=== PATIENT | male | born 2000 | race Native Hawaiian/Other Pacific Islander ===

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

== ENCOUNTER 2020-03-29 07:00 | Outpatient (CLI) | payer OTHER ==
[2020-03-29 19:38] LABS: HB2 TOTAL 15.2 g/dL; HEMOGLOBIN A1C 1.61 g/dL; HEMOGLOBIN A1C % 11.8 % (4.6-6.2)
[2020-03-29 19:59] LABS: ALBUMIN 4.5 g/dL (3.2-5.5); ALBUMIN/GLOBULIN RATIO 1.4 (1.0-2.2); BILIRUBIN,TOTAL 0.7 mg/dL (0.2-1.0); CALCIUM 9.3 mg/dL (8.5-10.3); CREATININE 0.7 mg/dL (0.6-1.2); TOTAL PROTEIN 7.8 g/dL (6.7-8.2)
== END 2020-03-29 23:59 | disposition home or self-care (01) ==
LOC: LAB.WCP 07:00
PROVIDERS: ATTEND Family Medicine
DX: F90.9 Attention-deficit hyperactivity disorder, unspecified type (principal); R79.89 Other specified abnormal findings of blood chemistry; E11.9 Type 2 diabetes mellitus without complications
CPT/HCPCS: 36415; 80053; 83036

== ENCOUNTER 2020-11-11 11:50 | Emergency (ER) | payer OTHER ==
[2020-11-11 12:20] LABS: BASOPHILS % (AUTO) 0.3 %; EOSINOPHILS # (AUTO) 0.3 10^3/uL (0.0-0.7); HCT - HEMATOCRIT 46.2 % (42.0-52.0); HGB - HEMOGLOBIN 15.6 g/dL (14.0-18.0); LYMPHOCYTES # (AUTO) 1.8 10^3/uL (1.5-3.5); LYMPHOCYTES % (AUTO) 22.4 %; MEAN CORPUSCULAR HEMOGLOBIN 27.6 pg (27.0-31.0); MEAN CORPUSCULAR HGB CONC 33.8 g/dL (32.0-36.0); MEAN CORPUSCULAR VOLUME 81.6 fL (80.0-94.0); MEAN PLATELET VOLUME 10.8 fL (7.4-11.4); MONOCYTES # (AUTO) 0.4 10^3/uL (0.0-1.0); MONOCYTES % (AUTO) 4.4 %; NEUTROPHILS # (AUTO) 5.5 10^3/uL (1.5-6.6); NEUTROPHILS % (AUTO) 68.6 %; PLT - PLATELET COUNT 113 10^3/uL (130-450); RED BLOOD COUNT 5.66 10^6/uL (4.70-6.10); RED CELL DISTRIBUTION WIDTH 13.7 % (12.0-15.0); WHITE BLOOD COUNT 7.9 x10^3/uL (4.8-10.8)
[2020-11-11 12:26] LABS: BILIRUBIN,URINE NEGATIVE (NEGATIVE); CLARITY,URINE CLEAR (CLEAR); GLUCOSE, URINE (UA) NEGATIVE (NEGATIVE); KETONES,URINE (UA) NEGATIVE (NEGATIVE); LEUKOCYTE ESTERASE, URINE NEGATIVE (NEGATIVE); NITRITE,URINE NEGATIVE (NEGATIVE); OCCULT BLOOD,URINE NEGATIVE (NEGATIVE); PROTEIN,URINE NEGATIVE (NEGATIVE); UROBILINOGEN,URINE 0.2 (NORMAL) E.U./dL (NORMAL)
[2020-11-11 12:32] LABS: ALBUMIN 4.6 g/dL (3.2-5.5); ALBUMIN/GLOBULIN RATIO 1.3 (1.0-2.2); BILIRUBIN,TOTAL 0.6 mg/dL (0.2-1.0); CALCIUM 9.2 mg/dL (8.5-10.3); CREATININE 0.6 mg/dL (0.6-1.2); TOTAL PROTEIN 8.2 g/dL (6.7-8.2)
--- NOTE | 2020-11-11 12:57 | ED Physician Documentation ---
History of Present Illness - Stated complaint Stated Complaint: LEG PX - Chief complaint Chief Complaint: Ext Problem - History obtained from History obtained from: Patient - Additonal information Additional information: 20-year-old gentleman with history of diabetes presents with bilateral leg pain starting today. He took a long car trip driving about 20 hours over 2 days over the weekend. He did not take insulin while on the trip. He is back on his insulin now. But complains of cramping of both calves and behind the knee and lower posterior thighs starting today. Declines pain medication for it. No history of DVT or PE. No chest pain or trouble breathing. Review of Systems Ten Systems: 10 systems reviewed and negative Constitutional: denies: Fever, Chills Cardiac: denies: Chest pain / pressure, Palpitations Respiratory: denies: Dyspnea, Cough PD PAST MEDICAL HISTORY - Past Medical History Past Medical History: Yes Endocrine/Autoimmune: Type 2 diabetes Psych: ADD/ADHD, Other - Past Surgical History Past Surgical History: Yes HEENT: Tonsil/Adenoidectomy - Present Medications Home Medications: Ambulatory Orders Medication Instructions Recorded Confirmed Guanfacine HCl [Intuniv] 2 mg PO DAILY 03/21/14 10/06/14 Lisdexamfetamine Dimesylate 70 mg PO DAILY 03/21/14 10/06/14 [Vyvanse] Fluoxetine HCl [Prozac] 40 mg PO DAILY 10/06/14 10/06/14 Ibuprofen 600 mg PO TID PRN #14 tablet 05/20/17 oxyCODONE/ACET 5/325 [Percocet 5 1 each PO Q4-6H PRN #16 tablet 05/20/17 mg/325 mg] - Allergies Allergies/Adverse Reactions: Allergies Allergy/AdvReac Type Severity Reaction Status Date / Time No Known Drug Allergies Allergy Verified 11/11/20 11:59 - Social History Does the pt smoke?: No Smoking Status: Never smoker Does the pt drink ETOH?: No Does the pt have substance abuse?: No - Immunizations Immunizations are current?: Yes - POLST Patient has POLST: No PD ED PE NORMAL - Vitals Vital signs reviewed: Yes - General General: Alert and oriented X 3, No acute distress - HEENT HEENT: PERRL, EOMI - Neck Neck: Supple, no meningeal sign, No bony TTP - Extremities Extremities: No edema, No calf tenderness / cord, Other (No visible or palpable abnormality of the calves, popliteal area, or thighs.) - Neuro Neuro: Alert and oriented X 3, Normal speech Results - Vitals Vitals: Vital Signs - 24 hr 11/11/20 11/11/20 11:54 14:14 Temperature 36.2 C L Heart Rate 79 91 Respiratory 14 16 Rate Blood Pressure 143/91 H 146/106 H O2 Saturation 95 98 Oxygen O2 Source Room air - Labs Labs: Laboratory Tests 11/11/20 11/11/20 11/11/20 12:13 12:13 12:17 WBC 7.9 RBC 5.66 Hgb 15.6 Hct 46.2 MCV 81.6 MCH 27.6 MCHC 33.8 RDW 13.7 Plt Count 113 L MPV 10.8 Neut # (Auto) 5.5 Lymph # (Auto) 1.8 [place] # (Auto) 0.4 Eos # (Auto) 0.3 Baso # (Auto) 0.0 Absolute Nucleated RBC 0.00 Nucleated RBC % 0.0 Sodium 140 Potassium 4.0 Chloride 103 Carbon Dioxide 23 Anion Gap 14.0 H BUN 18 Creatinine 0.6 Estimated GFR (MDRD) 172 Glucose 170 H Calcium 9.2 Total Bilirubin 0.6 AST 24 ALT 40 Alkaline Phosphatase 76 Total Protein 8.2 Albumin 4.6 Globulin 3.6 Albumin/Globulin Ratio 1.3 Lipase 26 Urine Color YELLOW Urine Clarity CLEAR Urine pH 6.0 Ur Specific [place] 1.025 Urine Protein NEGATIVE Urine Glucose (UA) NEGATIVE Urine Ketones NEGATIVE Urine Occult Blood NEGATIVE Urine Nitrite NEGATIVE Urine Bilirubin NEGATIVE Urine Urobilinogen 0.2 (NORMAL) Ur Leukocyte Esterase NEGATIVE Ur Microscopic Review NOT INDICATED Urine Culture Comments NOT INDICATED PD MEDICAL DECISION MAKING - ED course ED course: 20-year-old presents with leg cramps after a long car ride. Differential diagnosis includes uncontrolled diabetes, hypokalemia, DVT. All of these were ruled out with subsequent testing. Departure - Departure Disposition: 01 Home, Self Care Clinical Impression: Leg cramps Condition: Good Record reviewed to determine appropriate education?: Yes Instructions: ED Muscle Pain Leg Cramps Comments: Blood sugar today 170, the remainder of your labs are normal. Ultrasound of both legs demonstrates no evidence of DVT. Tylenol as needed for the pain also heat and gentle stretching. Return for new or worsening symptoms. Discharge Date/Time: 11/11/20 14:15
[2020-11-11 14:15] VITALS: BP 146/106
--- NOTE | 2020-11-11 14:18 | Ultrasound Report ---
PROCEDURE: Duplex Ext Veins Bilateral INDICATIONS: LA NENA SMITH TECHNIQUE: Real-time imaging, as well as color and pulse Doppler interrogation, were performed of the deep veins of both legs from the inguinal ligament to the popliteal fossa. COMPARISON: None. FINDINGS: The deep veins are normally compressible, and free of intraluminal thrombus. Color and pu lse Doppler demonstrate normal phasic intravascular flow. There is normal augmentation response to d istal compression maneuver. IMPRESSION: No lower extremity DVT in either leg. Reviewed by: Tay Hinkle MD on 11/11/2020 1:[address] [facility] Approved by: Tay Hinkle MD on 11/11/2020 1:[address] [facility] Station ID: [id number]
== END 2020-11-11 14:15 | disposition home or self-care (01) ==
LOC: ED 11:50
DX: R25.2 Cramp and spasm (principal); E11.9 Type 2 diabetes mellitus without complications; Z79.4 Long term (current) use of insulin
CPT/HCPCS: 36415; 80053; 81001; 81003; 83690; 85025; 87086; 93970; 99282; 99284

== ENCOUNTER 2020-12-04 13:27 | Emergency (ER) | payer OTHER ==
--- NOTE | 2020-12-04 13:42 | ED Physician Documentation ---
PD HPI MHE - Stated complaint Stated Complaint: SI - Chief complaint Chief Complaint: MHE - History obtained from History obtained from: Patient - Additional information Additional information: 20-year-old with high functioning autism and Asperger's presents with depression it has been worsening over the last three months. He's been trying to avoid his feelings by partying but last night it all came to a head while celebrating his sisters birthday. He does have suicidal ideation, no specific plan. He feels hopeless. He has never been under treatment for depression. Review of Systems Ten Systems: 10 systems reviewed and negative Constitutional: reports: Reviewed and negative Cardiac: reports: Reviewed and negative Respiratory: reports: Reviewed and negative PD PAST MEDICAL HISTORY - Past Medical History Past Medical History: Yes Endocrine/Autoimmune: Type 2 diabetes Psych: ADD/ADHD, Other - Past Surgical History Past Surgical History: Yes HEENT: Tonsil/Adenoidectomy - Present Medications Home Medications: Ambulatory Orders Medication Instructions Recorded Confirmed Guanfacine HCl [Intuniv] 2 mg PO DAILY 03/21/14 12/04/20 Lisdexamfetamine Dimesylate 70 mg PO DAILY 03/21/14 12/04/20 [Vyvanse] Insulin Lispro [Humalog Kwikpen 15 unit SUBQ DAILY 12/04/20 12/04/20 U-100] - Allergies Allergies/Adverse Reactions: Allergies Allergy/AdvReac Type Severity Reaction Status Date / Time No Known Drug Allergies Allergy Verified 12/04/20 13:36 - Social History Does the pt smoke?: No Smoking Status: Never smoker Does the pt drink ETOH?: No Does the pt have substance abuse?: No Substance Use and Type: Marijuana - Family History Family history: reports: Non contributory - Immunizations Immunizations are current?: Yes - POLST Patient has POLST: No PD ED PE NORMAL - Vitals Vital signs reviewed: Yes - General General: Alert and oriented X 3, No acute distress, Other (poor eye contact) - HEENT HEENT: PERRL, EOMI - Neck Neck: Supple, no meningeal sign, No bony TTP - Cardiac Cardiac: RRR, No murmur - Respiratory Respiratory: No respiratory distress, Clear bilaterally - Abdomen Abdomen: Normal bowel sounds, Soft, Non tender - Back Back: No CVA TTP, No spinal TTP - Derm Derm: Normal color, Warm and dry - Extremities Extremities: No edema, No calf tenderness / cord - Neuro Neuro: Alert and oriented X 3, Normal speech Results - Vitals Vitals: Vital Signs - 24 hr 12/04/20 12/04/20 13:36 17:19 Temperature 36.7 C 36.5 C Heart Rate 88 72 Respiratory 18 19 Rate Blood Pressure 156/130 H 150/99 H O2 Saturation 100 100 Oxygen O2 Source Room air - Labs Labs: Laboratory Tests 12/04/20 12/04/20 12/04/20 13:50 13:50 13:50 WBC 8.9 RBC 5.90 Hgb 16.1 Hct 48.2 MCV 81.7 MCH 27.3 MCHC 33.4 RDW 13.9 Plt Count 153 MPV 10.6 Neut # (Auto) 5.8 Lymph # (Auto) 2.3 [place] # (Auto) 0.5 Eos # (Auto) 0.3 Baso # (Auto) 0.0 Absolute Nucleated RBC 0.00 Nucleated RBC % 0.0 Sodium 141 Potassium 3.8 Chloride 102 Carbon Dioxide 21 Anion Gap 18.0 H BUN 18 Creatinine 0.6 Estimated GFR (MDRD) 172 Glucose 103 H Calcium 9.9 Total Bilirubin 1.2 H AST 33 ALT 44 Alkaline Phosphatase 76 Total Protein 8.7 H Albumin 4.9 Globulin 3.8 Albumin/Globulin Ratio 1.3 Lipase 38 TSH 1.40 Urine Color Urine Clarity Urine pH Ur Specific [place] Urine Protein Urine Glucose (UA) Urine Ketones Urine Occult Blood Urine Nitrite Urine Bilirubin Urine Urobilinogen Ur Leukocyte Esterase Urine RBC Urine WBC Ur Squamous Epith Cells Urine Bacteria Ur Microscopic Review Urine Culture Comments Nasal Adenovirus (PCR) Nasal B. parapertussis DNA (PCR) Nasal Coronavir 229E PCR Nasal Coronavir HKU1 PCR Nasal Coronavir NL63 PCR Nasal Coronavir OC43 PCR Nasal Enterovir/Rhinovir PCR Nasal Influenza B PCR Nasal Influenza A PCR Nasal Parainfluen 1 PCR Nasal Parainfluen 2 PCR Nasal Parainfluen 3 PCR Nasal Parainfluen 4 PCR Nasal RSV (PCR) Nasal B.pertussis DNA PCR Nasal C.pneumoniae (PCR) Juan Human Metapneumo PCR Nasal M.pneumoniae (PCR) Nasal SARS-CoV-2 (PCR) Salicylates < 6.0 Urine Opiates Screen Ur Oxycodone Screen Urine Methadone Screen Ur Propoxyphene Screen Acetaminophen < 10 L Ur Barbiturates Screen Ur Tricyclics Screen Ur Phencyclidine Scrn Ur Amphetamine Screen U Methamphetamines Scrn U Benzodiazepines Scrn Urine Cocaine Screen U Cannabinoids Screen Ethyl Alcohol < 5.0 12/04/20 12/04/20 13:50 13:50 WBC RBC Hgb Hct MCV MCH MCHC RDW Plt Count MPV Neut # (Auto) Lymph # (Auto) [place] # (Auto) Eos # (Auto) Baso # (Auto) Absolute Nucleated RBC Nucleated RBC % Sodium Potassium Chloride Carbon Dioxide Anion Gap BUN Creatinine Estimated GFR (MDRD) Glucose Calcium Total Bilirubin AST ALT Alkaline Phosphatase Total Protein Albumin Globulin Albumin/Globulin Ratio Lipase TSH Urine Color DARK YELLOW Urine Clarity CLEAR Urine pH 6.0 Ur Specific [place] >=1.030 H Urine Protein 30 H Urine Glucose (UA) NEGATIVE Urine Ketones NEGATIVE Urine Occult Blood NEGATIVE Urine Nitrite NEGATIVE Urine Bilirubin NEGATIVE Urine Urobilinogen 0.2 (NORMAL) Ur Leukocyte Esterase NEGATIVE Urine RBC 0-5 Urine WBC 0-3 Ur Squamous Epith Cells NONE SEEN Urine Bacteria Few Ur Microscopic Review INDICATED Urine Culture Comments NOT INDICATED Nasal Adenovirus (PCR) NOT DETECTED Nasal B. parapertussis DNA (PCR) NOT DETECTED Nasal Coronavir 229E PCR NOT DETECTED Nasal Coronavir HKU1 PCR NOT DETECTED Nasal Coronavir NL63 PCR NOT DETECTED Nasal Coronavir OC43 PCR NOT DETECTED Nasal Enterovir/Rhinovir PCR NOT DETECTED Nasal Influenza B PCR NOT DETECTED Nasal Influenza A PCR NOT DETECTED Nasal Parainfluen 1 PCR NOT DETECTED Nasal Parainfluen 2 PCR NOT DETECTED Nasal Parainfluen 3 PCR NOT DETECTED Nasal Parainfluen 4 PCR NOT DETECTED Nasal RSV (PCR) NOT DETECTED Nasal B.pertussis DNA PCR NOT DETECTED Nasal C.pneumoniae (PCR) NOT DETECTED Juan Human Metapneumo PCR NOT DETECTED Nasal M.pneumoniae (PCR) NOT DETECTED Nasal SARS-CoV-2 (PCR) NOT DETECTED Salicylates Urine Opiates Screen NEGATIVE Ur Oxycodone Screen NEGATIVE Urine Methadone Screen NEGATIVE Ur Propoxyphene Screen NEGATIVE Acetaminophen Ur Barbiturates Screen NEGATIVE Ur Tricyclics Screen NEGATIVE Ur Phencyclidine Scrn NEGATIVE Ur Amphetamine Screen NEGATIVE U Methamphetamines Scrn NEGATIVE U Benzodiazepines Scrn NEGATIVE Urine Cocaine Screen NEGATIVE U Cannabinoids Screen POSITIVE H Ethyl Alcohol PD MEDICAL DECISION MAKING - ED course ED course: 20-year-old gentleman presents for suicidal ideation. Will plan on routine medical clearance and social work evaluation. Social work saw him and did not feel like he was at any imminent danger and recommended outpatient follow-up. Departure - Departure Disposition: 01 Home, Self Care Clinical Impression: Depression Qualifiers: Depression Type: major depressive disorder Major depression recurrence: recurrent Active/Remission status: currently active Major depression episode severity: moderate Qualified Code(s): F33.1 - Major depressive disorder, recurrent, moderate Condition: Good Record reviewed to determine appropriate education?: Yes Instructions: ED Depression Comments: Follow the instructions of the social media coordinator regarding follow-up and counseling. Return if worsening. Forms: Activity restrictions Discharge Date/Time: 12/04/20 17:19
[2020-12-04 13:58] LABS: MUDS CUTOFF CONCENTRATIONS CUTOFF CONC BELOW:
[2020-12-04 14:01] LABS: BASOPHILS % (AUTO) 0.4 %; EOSINOPHILS # (AUTO) 0.3 10^3/uL (0.0-0.7); EOSINOPHILS % (AUTO) 3.6 %; HGB - HEMOGLOBIN 16.1 g/dL (14.0-18.0); LYMPHOCYTES # (AUTO) 2.3 10^3/uL (1.5-3.5); LYMPHOCYTES % (AUTO) 25.9 %; MEAN CORPUSCULAR HEMOGLOBIN 27.3 pg (27.0-31.0); MEAN CORPUSCULAR HGB CONC 33.4 g/dL (32.0-36.0); MEAN CORPUSCULAR VOLUME 81.7 fL (80.0-94.0); MEAN PLATELET VOLUME 10.6 fL (7.4-11.4); MONOCYTES # (AUTO) 0.5 10^3/uL (0.0-1.0); MONOCYTES % (AUTO) 5.5 %; NEUTROPHILS # (AUTO) 5.8 10^3/uL (1.5-6.6); NEUTROPHILS % (AUTO) 64.4 %; PLT - PLATELET COUNT 153 10^3/uL (130-450); RED CELL DISTRIBUTION WIDTH 13.9 % (12.0-15.0); WHITE BLOOD COUNT 8.9 x10^3/uL (4.8-10.8)
[2020-12-04 14:04] LABS: GLUCOSE, URINE (UA) NEGATIVE (NEGATIVE); KETONES,URINE (UA) NEGATIVE (NEGATIVE); LEUKOCYTE ESTERASE, URINE NEGATIVE (NEGATIVE); NITRITE,URINE NEGATIVE (NEGATIVE); OCCULT BLOOD,URINE NEGATIVE (NEGATIVE); PROTEIN,URINE 30 mg/dL (NEGATIVE); UROBILINOGEN,URINE 0.2 (NORMAL) E.U./dL (NORMAL)
[2020-12-04 14:17] LABS: BILIRUBIN,URINE NEGATIVE (NEGATIVE); CLARITY,URINE CLEAR (CLEAR); ICTOTEST,URINE NEGATIVE
[2020-12-04 14:18] LABS: ACETAMINOPHEN < 10 ug/mL (10-30); ALBUMIN 4.9 g/dL (3.2-5.5); ALBUMIN/GLOBULIN RATIO 1.3 (1.0-2.2); ALKALINE PHOSPHATASE 76 IU/L (42-121); ALT ALANINE AMINOTRANSFERASE 44 IU/L (10-60); AST ASPARTATE AMINOTRANSFERASE 33 IU/L (10-42); BILIRUBIN,TOTAL 1.2 mg/dL (0.2-1.0); BUN - BLOOD UREA NITROGEN 18 mg/dL (6-20); CALCIUM 9.9 mg/dL (8.5-10.3); CARBON DIOXIDE - CO2 21 mmol/L (21-32); CHLORIDE 102 mmol/L (101-111); CREATININE 0.6 mg/dL (0.6-1.2); GLUCOSE 103 mg/dL (70-100); LIPASE 38 U/L (22-51); SALICYLATE < 6.0 mg/dL; TOTAL PROTEIN 8.7 g/dL (6.7-8.2)
[2020-12-04 14:20] LABS: AMPHETAMINE SCREEN,URINE NEGATIVE (NEGATIVE); BENZODIAZEPINES SCREEN, URINE NEGATIVE (NEGATIVE); COCAINE SCREEN URINE NEGATIVE (NEGATIVE); METHADONE SCREEN, URINE NEGATIVE (NEGATIVE); METHAMPHETAMINES SCREEN, URINE NEGATIVE (NEGATIVE); OPIATE SCREEN, URINE NEGATIVE (NEGATIVE); OXYCODONE SCREEN, URINE NEGATIVE (NEGATIVE); PROPOXYPHENE SCREEN, URINE NEGATIVE (NEGATIVE); TRICYCLIC ANTIDEPRESSANT,URINE NEGATIVE (NEGATIVE)
[2020-12-04 14:35] LABS: BACTERIA,URINE Few /HPF (None Seen); RBC,URINE 0-5 /HPF (0-5); SQUAMOUS EPITHELIAL CELL,UR NONE SEEN (<= Few)
[2020-12-04 14:50] LABS: C. PNEUMONIAE- RESP PCR PANEL NOT DETECTED
[2020-12-04 17:21] VITALS: BP 150/99
== END 2020-12-04 17:19 | disposition home or self-care (01) ==
LOC: ED 13:27 → EEVIPCON 13:27 → ED 17:19
DX: F32.9 Major depressive disorder, single episode, unspecified (principal); F84.5 Asperger's syndrome; E11.9 Type 2 diabetes mellitus without complications; Z79.4 Long term (current) use of insulin
CPT/HCPCS: 0202U; 36415; 80320; 80329; 81001; 83690; 99283; 99284; 80053; 80306; 80307; 81003; 84443; 85025; 87086

== ENCOUNTER 2021-02-13 10:12 | Outpatient (CLI) | payer OTHER ==
[2021-02-13 11:54] LABS: BASOPHILS % (AUTO) 0.4 %; EOSINOPHILS # (AUTO) 0.4 10^3/uL (0.0-0.7); HCT - HEMATOCRIT 49.2 % (42.0-52.0); HGB - HEMOGLOBIN 15.6 g/dL (14.0-18.0); LYMPHOCYTES % (AUTO) 26.3 %; MEAN CORPUSCULAR HEMOGLOBIN 27.6 pg (27.0-31.0); MEAN CORPUSCULAR HGB CONC 31.7 g/dL (32.0-36.0); MEAN CORPUSCULAR VOLUME 87.1 fL (80.0-94.0); MEAN PLATELET VOLUME 12.2 fL (7.4-11.4); MONOCYTES # (AUTO) 0.3 10^3/uL (0.0-1.0); MONOCYTES % (AUTO) 4.5 %; NEUTROPHILS # (AUTO) 4.8 10^3/uL (1.5-6.6); NEUTROPHILS % (AUTO) 63.5 %; PLT - PLATELET COUNT 137 10^3/uL (130-450); RED BLOOD COUNT 5.65 10^6/uL (4.70-6.10); RED CELL DISTRIBUTION WIDTH 13.9 % (12.0-15.0); WHITE BLOOD COUNT 7.5 x10^3/uL (4.8-10.8)
[2021-02-13 12:56] LABS: ALBUMIN 4.6 g/dL (3.2-5.5); ALBUMIN/GLOBULIN RATIO 1.4 (1.0-2.2); ALKALINE PHOSPHATASE 66 IU/L (42-121); ALT ALANINE AMINOTRANSFERASE 40 IU/L (10-60); AST ASPARTATE AMINOTRANSFERASE 24 IU/L (10-42); BILIRUBIN,TOTAL 0.6 mg/dL (0.2-1.0); BUN - BLOOD UREA NITROGEN 22 mg/dL (6-20); CALCIUM 9.4 mg/dL (8.5-10.3); CARBON DIOXIDE - CO2 26 mmol/L (21-32); CHLORIDE 106 mmol/L (101-111); CHOL/HDL RATIO 4.3 (<5.0); CHOLESTEROL 176 mg/dL; CREATININE 0.7 mg/dL (0.6-1.2); GFR - MDRD 144 (>89); GLUCOSE 117 mg/dL (70-100); HDL CHOLESTEROL 41 mg/dL; LDL CHOLESTEROL,CALCULATED 116 mg/dL; LDL/HDL RATIO 2.8 (<3.6); POTASSIUM 4.8 mmol/L (3.5-5.0); SODIUM 142 mmol/L (135-145); TRIGLYCERIDES 95 mg/dL; VLDL CHOLESTEROL 19 mg/dL
[2021-02-13 12:57] LABS: ESTIMATED AVERAGE GLUCOSE 117 mg/dL (70-100); HEMOGLOBIN A1c% 5.7 % (4.27-6.07)
[2021-02-13 12:58] LABS: THYROID STIMULATING HORMONE 0.95 uIU/mL (0.34-5.60)
[2021-02-13 13:03] LABS: CREATININE,URINE 160.2 mg/dL; MICROALBUM/CREATININE RATIO,UR 15.6 ug/mg (<30.0); MICROALBUMIN,URINE 2.5 mg/dL (0-300.0)
== END 2021-02-13 23:59 | disposition home or self-care (01) ==
LOC: LAB.WCP 10:12
PROVIDERS: ATTEND Internal Medicine
DX: E11.9 Type 2 diabetes mellitus without complications (principal)
CPT/HCPCS: 36415; 80053; 80061; 81599; 82043; 82570; 83036; 83721; 84443; 85025; 86341

== ENCOUNTER 2021-04-22 16:53 | Outpatient (CLI) | payer OTHER | END 2021-04-22 16:54 | disposition home or self-care (01) | LOC: COV 16:53 | PROVIDERS: ATTEND Family Medicine | DX: Z20.822 Contact with and (suspected) exposure to COVID-19 (principal) ==

== ENCOUNTER 2021-08-07 08:00 | Outpatient (CLI) | payer OTHER ==
[2021-08-07 12:31] LABS: CALCIUM 9.6 mg/dL (8.5-10.3); CREATININE 0.8 mg/dL (0.6-1.2); POTASSIUM 4.4 mmol/L (3.5-5.0)
[2021-08-07 12:34] LABS: ESTIMATED AVERAGE GLUCOSE 123 mg/dL (70-100); HEMOGLOBIN A1c% 5.9 % (4.27-6.07)
[2021-08-07 12:51] LABS: THYROID STIMULATING HORMONE 1.36 uIU/mL (0.34-5.60)
[2021-08-07 12:53] LABS: FREE T3 3.48 pg/mL (2.5-3.9)
[2021-08-07 12:54] LABS: FREE T4 (FREE THYROXINE) 0.75 ng/dL (0.58-1.64)
== END 2021-08-07 23:59 | disposition home or self-care (01) ==
LOC: LAB.WCP 08:00
PROVIDERS: ATTEND Family Medicine
DX: E11.65 Type 2 diabetes mellitus with hyperglycemia (principal); R80.9 Proteinuria, unspecified; F84.0 Autistic disorder; F90.9 Attention-deficit hyperactivity disorder, unspecified type; H05.229 Edema of unspecified orbit
CPT/HCPCS: 36415; 80048; 83036; 84439; 84443; 84481

== ENCOUNTER 2021-12-21 15:19 | Emergency (ER) | payer BC, OTHER ==
[2021-12-21 15:34] VITALS: BP 163/90
--- NOTE | 2021-12-21 16:02 | ED Physician Documentation ---
PD HPI MHE - Stated complaint Stated Complaint: SOA/ANXIETY - Chief complaint Chief Complaint: MHE - History obtained from History obtained from: Patient - Additional information Additional information: 21-year-old gentleman with high functioning autism and Asperger's, also anxiety and ADHD presents with worsening panic attacks over the last month. He restarted his medication which is Vyvanse and presumed clonazepam from his description but not quite clear on that. States that despite that he is having several panic attacks a day with fleeting SI but no plan. Review of Systems Constitutional: denies: Fever, Chills Cardiac: denies: Chest pain / pressure, Palpitations Respiratory: denies: Dyspnea, Cough PD PAST MEDICAL HISTORY - Past Medical History Endocrine/Autoimmune: Type 2 diabetes GI: Pancreatitis Psych: ADD/ADHD, Other - Past Surgical History Past Surgical History: Yes HEENT: Tonsil/Adenoidectomy - Present Medications Home Medications: Ambulatory Orders Medication Instructions Recorded Confirmed Guanfacine HCl [Intuniv] 2 mg PO DAILY 03/21/14 12/04/20 Lisdexamfetamine Dimesylate 70 mg PO DAILY 03/21/14 12/04/20 [Vyvanse] Insulin Lispro [Humalog Kwikpen 15 unit SUBQ DAILY 12/04/20 12/04/20 U-100] - Allergies Allergies/Adverse Reactions: Allergies Allergy/AdvReac Type Severity Reaction Status Date / Time No Known Drug Allergies Allergy Verified 12/21/21 15:34 - Social History Does the pt smoke?: No Smoking Status: Never smoker Does the pt drink ETOH?: No Does the pt have substance abuse?: No - Immunizations Immunizations are current?: Yes - POLST Patient has POLST: No PD ED PE NORMAL - Vitals Vital signs reviewed: Yes - General General: Alert and oriented X 3, No acute distress, Other (Poor eye contact, anxious) - HEENT HEENT: PERRL, EOMI - Neck Neck: Supple, no meningeal sign, No bony TTP - Neuro Neuro: Alert and oriented X 3, No motor deficit, No sensory deficit, Normal speech Eye Opening: Spontaneous Motor: Obeys Commands Verbal: Oriented GCS Score: 15 Results - Vitals Vitals: Vital Signs - 24 hr 12/21/21 15:28 Temperature 36.0 C L Heart Rate 70 Respiratory 16 Rate Blood Pressure 163/90 H O2 Saturation 95 Oxygen O2 Source Room air PD MEDICAL DECISION MAKING - ED course ED course: 21-year-old gentleman presents with anxiety in the setting of underlying anxiety and ADHD as well as Asperger's and autism. We discussed options today including medication management, telepsychiatric consultation, or hospitalization and he declined all of these. He wants to follow-up as an outpatient and he was given some resources to do with that and discussed signs and symptoms that would necessitate urgent reevaluation. Departure - Departure Disposition: 01 Home, Self Care Clinical Impression: Anxiety Condition: Good Record reviewed to determine appropriate education?: Yes Instructions: ED Panic Attack Comments: As discussed, I think you should definitely follow-up with a psychiatrist, 1 option would be [facility] psychological services, they are on [facility] in [place]. The phone number is [phone]. Call tomorrow for an appointment. Return if worsening or if new symptoms develop.
== END 2021-12-21 16:26 | disposition home or self-care (01) ==
LOC: ED 15:19
DX: F41.9 Anxiety disorder, unspecified (principal); R45.851 Suicidal ideations; F84.5 Asperger's syndrome; F90.9 Attention-deficit hyperactivity disorder, unspecified type; E11.9 Type 2 diabetes mellitus without complications; Z79.4 Long term (current) use of insulin
CPT/HCPCS: 99281; 99284

== ENCOUNTER 2023-04-17 08:00 | Outpatient (CLI) | payer BC | END 2023-04-17 23:59 | disposition home or self-care (01) | LOC: LAB 08:00 | PROVIDERS: ATTEND Nurse Practitioner | DX: R07.0 Pain in throat (principal) | CPT/HCPCS: 87070 ==

== ENCOUNTER 2023-10-12 07:15 | Outpatient (CLI) | payer BC ==
[2023-10-12 20:05] LABS: CHLAMYDIA TRACHOMATIS DNA NEGATIVE (NEGATIVE); NEISSERIA GONORRHOEAE DNA NEGATIVE (NEGATIVE); TRICHOMONAS VAGINALIS DNA NEGATIVE (NEGATIVE)
== END 2023-10-12 07:30 | disposition home or self-care (01) ==
LOC: LAB.N 07:15
PROVIDERS: ATTEND Family Medicine
DX: R36.9 Urethral discharge, unspecified (principal)
CPT/HCPCS: 87491; 87591; 87661

== ENCOUNTER 2024-01-18 14:57 | Emergency (ER) | payer BC ==
[2024-01-18 15:53] VITALS: BP 134/87; O2SAT 98
--- NOTE | 2024-01-18 16:47 | XRAY Report ---
PROCEDURE: Foot 3+V LT INDICATIONS: toe/foot injury TECHNIQUE: 4 views of the foot were acquired. COMPARISON: None. FINDINGS: Bones: Nondisplaced lucency at the head of the proximal phalanx. No dislocation. Soft tissues: No suspicious calcifications. IMPRESSION: Possible nondisplaced fracture at the first proximal phalangeal head. Correlate with tenderness. Reviewed by: Elver Villalobos MD on 01/18/2024 4:46 PM PDT Approved by: Elver Villalobos MD on 01/18/2024 4:46 PM PDT Station ID: [id number]
--- NOTE | 2024-01-18 18:01 | ED Physician Documentation ---
PD HPI LOWER EXT INJURY - Stated complaint Stated Complaint: LT FOOT INJ - Chief complaint Chief Complaint: Ext Problem - History obtained from History obtained from: Patient - Additional information Additional information: Pt with pain to L great toe after kicking stair yesterday. Reports bruising, pain with walking .No blood thinners or injury elsewhere. 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 Review of Systems Constitutional: reports: Fever Skin: denies: Laceration (s) Musculoskeletal: reports: Extremity pain Neurologic: denies: Head injury PD PAST MEDICAL HISTORY - Past Medical History Past Medical History: Yes Endocrine/Autoimmune: Type 2 diabetes GI: Pancreatitis Psych: ADD/ADHD, Other - Past Surgical History Past Surgical History: Yes HEENT: Tonsil/Adenoidectomy - Present Medications Home Medications: Ambulatory Orders Medication Instructions Recorded Confirmed Guanfacine HCl [Intuniv] 2 mg PO DAILY 03/21/14 12/04/20 Lisdexamfetamine Dimesylate 70 mg PO DAILY 03/21/14 12/04/20 [Vyvanse] Insulin Lispro [Humalog Kwikpen 15 unit SUBQ DAILY 12/04/20 12/04/20 U-100] - Allergies Allergies/Adverse Reactions: Allergies Allergy/AdvReac Type Severity Reaction Status Date / Time No Known Drug Allergies Allergy Verified 12/21/21 15:34 - Social History Does the pt smoke?: Yes Smoking Status: Current every day smoker Does the pt drink ETOH?: Yes Does the pt have substance abuse?: No - Immunizations Immunizations are current?: Yes - POLST Patient has POLST: No PD ED PE NORMAL - General General: Alert and oriented X 3, No acute distress, Well developed/nourished - Derm Derm: Warm and dry - Extremities Extremities: Other (Bruising/tenderness to L great toe; pedal pulses intact; brisk cap refill to toe; no tenderness elsewhere in foot; motor/sensation intact to L foot) Results - Vitals Vitals: Vital Signs - 24 hr 01/18/24 15:31 Temperature 36.6 C Heart Rate 79 Respiratory 16 Rate Blood Pressure 134/87 H O2 Saturation 98 Oxygen O2 Source Room air PD Medical Decision Making - ED course ED course: Pt wiht pain to L great toe after injury. XR with fracture of proximal phalynx which is also where pain is. Wong tape and post op shoe applied. Pt declined crutches. Advised on continued supportive care, need for follow up and concerning symptoms to return for. Departure - Departure Disposition: 01 Home, Self Care Clinical Impression: Fractured great toe Qualifiers: Encounter type: initial encounter Fracture type: closed Phalanx: proximal Fracture alignment: nondisplaced Laterality: left Qualified Code(s): S92.415A - Nondisplaced fracture of proximal phalanx of left great toe, initial encounter for closed fracture Condition: Stable Instructions: ED Fx Toe Closed Follow-Up: Aguilar Noland MD [Primary Care Provider] - Comments: Have a fracture in your left great toe. We have applied a wong tape as well as given you a postop shoe which I would have you continue to use while it heals. Continue with ice, anti-inflammatories, elevation. Please have follow-up with your primary care provider. Return to the ER with any worsening symptoms. Forms: PCP List, Activity restrictions Discharge Date/Time: 01/18/24 18:17
== END 2024-01-18 18:17 | disposition home or self-care (01) ==
LOC: ED 14:57
DX: S92.415A Nondisplaced fracture of proximal phalanx of left great toe, initial encounter for closed fracture (principal); W22.8XXA Striking against or struck by other objects, initial encounter; E11.9 Type 2 diabetes mellitus without complications; Z79.4 Long term (current) use of insulin; F17.200 Nicotine dependence, unspecified, uncomplicated
CPT/HCPCS: 99283